=== PATIENT | female | born 1975 | race Hispanic/Latino ===

== ENCOUNTER 2017-06-14 21:41 | Emergency (ER) | payer OTHER ==
[~2017-06-14 21:41] MED LIST: AMOXICILLIN875 M1 PO; IBUPROFEN800 M1 PO; TOBRADEX EYE O3.5 GM OPH
[2017-06-14 22:02] VITALS: BP 148/76
[2017-06-14] MEDS ORDERED: HYDROXYZINE HCL50 M1 PO (23:10)
[2017-06-14] MEDS ORDERED: DELTASONE20 MG PO (23:10)
--- NOTE | 2017-06-14 23:10 | ED SKIN/ALLERGY COMPLAINT ---
History of Present Illness General Chief Complaint: Lower Extremity Problems Stated Complaint: PT HAS HIVES ON THE BACK OF BOTH LEGS Source: patient Exam Limitations: no limitations Vital Signs & Intake/Output Vital Signs & Intake/Output Vital Signs Date Time Temp Pulse Resp B/P B/P Pulse O2 O2 Flow FiO2 Mean Ox Delivery Rate 06/14 2313 97 Room Air 06/14 2202 97.0 100 20 148/76 98 ED Intake and Output 06/15 0000 06/14 1200 Intake Total 0 Output Total Balance 0 Intake, IV 0 Allergies Coded Allergies: NO KNOWN ALLERGIES (10/24/12) Reconcile Medications Hydroxyzine Hydrochloride (Atarax) 50 MG TAB 1 TAB PO TID ITCHING Prednisone (Deltasone) 20 MG TABLET 1 TAB PO BID ALLERGIC REACTION Tobramycin/Dexamethasone (Tobradex Eye Ointment) 0.3 %-0.1 % OINT...G. 1 JOLENE OPH TID CONJUNCTIVITIS Triage Note: PER PT HIVES TO LEGS SINCE SUNDAY TOOK A BENADRYL YESTERDAY WITHOUT EFFECT. NO RESP DISTRESS NO OTHER HIVES NOTED Triage Nurses Notes Reviewed? yes Onset: Abrupt Duration: day(s): (few), intermittent Timing: recent history Location: generalized No Modifying Factors: none : No Patient currently breastfeeds: No HPI: 42-year-old female comes into emergency room for further evaluation of hives that she is reporting is been intermittent for the past few days. She noticed them a few days ago. She took some Benadryl and improved. She reports that the rash keeps coming back. She denies any new skin care products. She denies any shampoos or changes in fabric softener. Denies any new foods. Denies any new changes that she can recall. Itching. No prior history. Denies any tongue swelling or difficulty breathing. Denies any other associated symptoms. (Lacho German) Past History Travel History Traveled to [place] past 21 day No Medical History Any Pertinent Medical History? see below for history Neurological: NONE EENT: NONE Cardiovascular: NONE Respiratory: NONE Gastrointestinal: NONE Hepatic: NONE Renal: NONE Musculoskeletal: NONE Psychiatric: NONE Endocrine: NONE Blood Disorders: NONE Cancer(s): NONE GRAIN DRIER/Reproductive: NONE Surgical History Surgical History: non-contributory Psychosocial History What is your primary language Armenian Tobacco Use: Never used Family History Hx Contributory? Yes (Lacho German) Review of Systems Review of Systems Constitutional: Reports: no symptoms. EENTM: Reports: no symptoms. Respiratory: Reports: no symptoms. Cardiovascular: Reports: no symptoms. GI: Reports: no symptoms. Genitourinary: Reports: no symptoms. Musculoskeletal: Reports: no symptoms. Skin: Reports: see HPI. Neurological/Psychological: Reports: no symptoms. Hematologic/Endocrine: Reports: no symptoms. Immunologic/Allergic: Reports: no symptoms. All Other Systems: Reviewed and Negative (Lacho German) Physical Exam Physical Exam General Appearance: well developed/nourished, mild distress Head: atraumatic Eyes: Bilateral: normal appearance. Ears, Nose, Throat: normal ENT inspection, hearing grossly normal Neck: normal inspection Respiratory: no respiratory distress Back: normal range of motion Extremities: normal range of motion, no edema, rash Neurologic/Psych: awake, alert, oriented x 3, normal mood/affect Skin: intact Skin Problem Location: generalized Skin Problem Character: urticarial (Lacho German) Progress Differential Diagnosis: abscess/cellulitis, allergic reaction, anaphylaxis, angioedema, contact dermatitis Plan of Care: Rashes most consistent with allergic reaction. Patient started on prednisone and hydroxyzine. Follow-up with primary care doctor. Return if any other concerns. No signs of anaphylaxis. In no apparent distress upon discharge. (Lacho German) Departure Departure Disposition: HOME OR SELF CARE Condition: Stable Clinical Impression Primary Impression: Allergic reaction Referrals: Unknown (PCP/Family) Additional Instructions: Take prednisone and hydroxyzine as prescribed. Follow-up with primary care doctor. Return if any concerns worsening symptoms. Please go over all results of today's visit with your primary care doctor. Contact your primary care doctor to let them know you were here in the emergency room. There may be nonspecific findings which may not be related to your visit today here in the emergency room but may require further evaluation and chronic monitoring by your primary care doctor. If you had a laceration today the chance of foreign body always remains. You should follow-up with your primary care doctor for recheck in 3-5 days for a wound check. If you had an x-ray done there is a chance that a fracture could have been missed on initial read and you should follow-up with your primary care doctor for repeat x-rays if symptoms persist. If your blood pressure was elevated here in the emergency room please have rechecked by our primary care doctor within the next 48. If you were prescribed a narcotic here in the emergency room or any type of controlled substances you're not allowed to drive while taking this medication or operate any type of heavy machinery. Narcotics can make you feel lightheaded dizziness nausea and can cause constipation. You may need to apple picker a stool softener. Thank you for choosing [facility] emergency room. Please return to the emergency room immediately if you have any other concerns worsening of symptoms. Departure Forms: Customer Survey General Discharge Information Prescriptions: Current Visit Scripts Prednisone (Deltasone) 1 TAB PO BID #10 TAB Hydroxyzine Hydrochloride (Atarax) 1 TAB PO TID #30 TAB (Lacho German) PA/LEATHER CLEANER Co-Sign Statement Statement: ED Attending supervision documentation- I saw and evaluated the patient. I have also reviewed all the pertinent lab results and diagnostic results. I agree with the findings and the plan of care as documented in the PA's/LEATHER CLEANER's documentation. x I have reviewed the ED Record and agree with the PA's/LEATHER CLEANER's documentation. [] Additions or exceptions (if any) to the PAs/LEATHER CLEANER's note and plan are summarized below: [] (Chasity AMIN,Shree)
== END 2017-06-14 23:30 ==
LOC: ERH 21:41
DX: T78.40XA Allergy, unspecified, initial encounter (principal)